=== PATIENT | male | born 1990 | race Caucasian/White ===

== ENCOUNTER 2024-09-27 14:54 | Emergency (ER) | payer BC, SELFPAY ==
[2024-09-27 14:54] VITALS: BMI 45.2
[2024-09-27 14:58] VITALS: BP 136/82
--- NOTE | 2024-09-27 16:00 | ED.GENMED ---
History of Present Illness
General
Chief Complaint: Back Pain
Time Seen by Provider: 09/27/24 15:35
History of Present Illness
History of Present Illness:
34-year-old male presents the emergency department for evaluation of gradually worsening low back pain for the past 24 hours. He notes it began after lifting several heavy objects around his house. He is having severe difficulty getting up from a
supine position, when upright he has pain radiating down both lateral thighs. No loss of bladder or bowel function, no lower extremity paresthesias at rest. Has taken ibuprofen and Tylenol without relief. No history of IV drug abuse or night
sweats
Review of Systems
Review of Systems
Allergies reviewed?: Yes
All Other Systems: ROS reviewed and negative except as documented in HPI and ROS
Phy Exam
Physical Exam
Physical Exam:
GEN: Well appearing, NAD, WDWN
HEENT: Oral mucosa moist, no scleral icterus
Cardiac: Regular rate
Lung: No respiratory distress, no tachypnea
MSK: No gross deformity or injuries. Unable to adequately assess L-spine due to patient's inability to tolerate upright positioning, any degree of motion of the lower extremities elicits increased pain, patellar reflexes 2+ bilaterally
Skin: Good color, no pallor or jaundice, no rashes
Neuro: AO x3, moves all extremities freely
Psych: Calm, cooperative
Course
Orders/Labs/Results
Orders:
Orders
09/27/24 15:56
Diazepam [Valium] 5 mg PO NOW STA
Ketorolac [Toradol] 30 mg IM NOW STA
09/27/24 17:38
Oxycodone [Roxicodone] 10 mg PO NOW STA
09/27/24 18:56
Dexamethasone Sod Phosphate [Decadron] 10 mg IM NOW STA
HYDROmorphone [Dilaudid] 0.5 mg IM NOW STA
Vital Signs
Initial and Last Documented VS:
Initial Vital Signs
Temp Pulse Resp BP Pulse Ox
98.2 F 73 15 136/82 96
09/27/24 14:58 09/27/24 14:58 09/27/24 14:58 09/27/24 14:58 09/27/24 14:58
Last Documented Vital Signs
Temp Pulse Resp BP Pulse Ox
98.2 F 73 15 136/82 96
09/27/24 14:58 09/27/24 14:58 09/27/24 14:58 09/27/24 14:58 09/27/24 14:58
MDM/Problems Addressed
MDM/Problems Addressed:
Patient's pain was quite challenging to control, ultimately he remains in significant pain but is able to ambulate with some degree of assistance. I did offer him admission for further pain control however at this time he is not interested in
admission due to the need to care for children and his spouse at home. Will start him on a steroid course and provide a prescription for opioids. At this time he has no red flag symptoms warranting urgent MRI concerning for cauda equina
*Critical Care Note
Total Time (30-74mins, 75-104mins- exclusive of procedures): Not Applicable
ED Attending Note
-
Portions of this chart may have been created with voice recognition software.� Occasional wrong word or��sound alike� substitutions may have occurred due to the inherent limitations of voice recognition software.
Discharge Plan
Departure
Patient Disposition: Home (Routine Discharge)
Date of Disposition: 09/27/24
Time of Disposition: 18:46
Patient with high blood pressure during this ER visit?: No
Discharge Problem:
Mechanical low back pain
Instructions: Low Back Pain (DC)
Prescriptions:
New
methylprednisolone [Medrol (Andrew)] 4 mg tablets,dose pack
See Rx Instructions .ROUTE .COMPLEX Qty: 21 0RF
Rx Instructions:
orally per package directions
methocarbamol 750 mg tablet
750 - 1,500 mg PO Q8H Qty: 20 0RF
oxycodone 5 mg tablet
5 mg PO Q8H PRN (Reason: Pain) Qty: 10 0RF
Referrals:
NONE,* [Family Provider] -
Activity Restrictions/Additional Instructions:
Do not take any ibuprofen while on the steroids
Follow up with your primary doctor in 1-2 days
Interventions
Interventions:
*Risk Screen - Suicide Last Done: 09/27/24 14:58
*General Assessment Last Done: 09/27/24 14:58
*Neglect/Abuse Screening Last Done: 09/27/24 14:58
*ED COVID-19 Vaccine History Last Done: 09/27/24 14:58
*Nursing Disposition Last Done: 09/27/24 19:22
ED-Musculoskeletal Assessment Last Done: 09/27/24 19:22
Discharge Date and Time
Discharge Date/Time: 09/27/24 19:22
Print Language: BENINESE
[2024-09-27] MEDS: TORADOL 30 MG IM (16:14)
[2024-09-27] MEDS: VALIUM 5 MG PO (16:14)
[2024-09-27] MEDS: ROXICODONE 10 MG PO (17:50)
[2024-09-27] MEDS: DILAUDID 0.5 MG IM (19:13)
[2024-09-27] MEDS: DECADRON 10 MG IM (19:17)
== END 2024-09-27 19:22 | disposition home or self-care (01) ==
LOC: EMR 14:54
PROVIDERS: EMERGENCY PHYSICIAN Emergency Medicine
DX: M54.50 Low back pain, unspecified (principal)
CPT/HCPCS: 99284; 96372 ×3

== ENCOUNTER 2024-10-09 09:36 | Emergency (ER) | payer BC, SELFPAY ==
[2024-10-09 09:38] VITALS: BP 141/94
--- NOTE | 2024-10-09 10:09 | ED.GENMED ---
History of Present Illness
General
Chief Complaint: Back Pain
Source: patient
Exam Limitations: none
Time Seen by Provider: 10/09/24 09:52
History of Present Illness
History of Present Illness:
34-year-old male presents for reevaluation of lower back pain. He was here about 2 weeks ago for the same. He was doing better while taking the steroid pack however he ran out of this 6 days ago hide again. He has extreme since. No significant
radiation of pain down the legs. He denies any bowel or bladder dysfunction. This started after moving some furniture around at home. No new injury. He denies any numbness anywhere. No fevers. He attempted to call a back and spine office and
has yet to receive an appointment. No other medical problems. No other complaints at this time
Phy Exam
Physical Exam
Physical Exam:
General: Well-appearing but uncomfortable male no acute respiratory distress
HEENT: Normocephalic atraumatic
MSK: Paraspinous spasm noted over the right lumbosacral junction. No significant midline tenderness.
Neurologic exam patient is able to stand. He has good sensation to the lower extremities. Good strength to the lower extremities.
Skin is warm no rash
Course
Orders/Labs/Results
Orders:
Orders
10/09/24 10:07
Dexamethasone Sod Phosphate [Decadron] 10 mg IM NOW STA
Diazepam [Valium] 5 mg PO NOW STA
HYDROmorphone [Dilaudid] 1 mg IM NOW STA
Ketorolac [Toradol] 30 mg IM NOW STA
10/09/24 10:56
Ondansetron Orally Disint [Zofran Odt (Orally Disintegrating)] 4 mg PO NOW STA
10/09/24 11:00
Ondansetron Orally Disint [Zofran Odt (Orally Disintegrating)] 4 mg .ROUTE .[facility]
Vital Signs
Initial and Last Documented VS:
Initial Vital Signs
Temp Pulse Resp BP Pulse Ox
98.3 F 94 18 141/94 94
10/09/24 09:38 10/09/24 09:38 10/09/24 09:38 10/09/24 09:38 10/09/24 09:38
Last Documented Vital Signs
Temp Pulse Resp BP Pulse Ox
98.3 F 94 18 141/94 94
10/09/24 09:38 10/09/24 09:38 10/09/24 09:38 10/09/24 09:38 10/09/24 09:38
MDM/Problems Addressed
Differential Diagnosis Includes:
Recurrent lower back pain. No red flags to suggest cauda equina. No fever to suggest infectious process. Will attempt to treat symptoms with medication here. He declined an IV. He will receive IM injections of medicine.
*Critical Care Note
Total Time (30-74mins, 75-104mins- exclusive of procedures): Not Applicable
Update Note
Update Note:
Patient feeling slightly improved after medicine here. Will represcribe a steroid taper more muscle relaxers and pain medicine. He plans on following up with back pain specialist.
ED Attending Note
-
Portions of this chart may have been created with voice recognition software.� Occasional wrong word or��sound alike� substitutions may have occurred due to the inherent limitations of voice recognition software.
Discharge Plan
Departure
Patient Disposition: Home (Routine Discharge)
Date of Disposition: 10/09/24
Time of Disposition: 12:31
Patient with high blood pressure during this ER visit?: No
Discharge Problem:
Back pain
Instructions: Low Back Pain (DC)
Prescriptions:
New
prednisone 10 mg Tablet
See Rx Instructions .ROUTE .COMPLEX Qty: 45 0RF
Rx Instructions:
Take By Mouth:
50 mg daily x3 days, 40 mg daily x3 days,
30 mg daily x3 days, 20 mg daily x3 days,
10 mg daily x3 days
cyclobenzaprine 10 mg tablet
10 mg PO TID PRN (Reason: spasm) Qty: 10 0RF
oxycodone 5 mg tablet
5 mg PO Q8H PRN (Reason: Pain) Qty: 10 0RF
No Action
methylprednisolone [Medrol (Andrew)] 4 mg tablets,dose pack
See Rx Instructions .ROUTE .COMPLEX Qty: 21 0RF
Rx Instructions:
orally per package directions
methocarbamol 750 mg tablet
750 - 1,500 mg PO Q8H Qty: 20 0RF
oxycodone 5 mg tablet
5 mg PO Q8H PRN (Reason: Pain) Qty: 10 0RF
Referrals:
NONE,* [Family Provider] -
Activity Restrictions/Additional Instructions:
Continue with medicine as directed. Continue to follow-up with back pain specialist.
Interventions
Interventions:
*Risk Screen - Suicide Last Done: 10/09/24 09:38
*General Assessment Last Done: 10/09/24 09:38
*Neglect/Abuse Screening Last Done: 10/09/24 09:38
ED-Musculoskeletal Assessment Last Done: 10/09/24 11:01
Discharge Date and Time
Print Language: AZERI
[2024-10-09] MEDS: DECADRON 10 MG IM (10:39)
[2024-10-09] MEDS: VALIUM 5 MG PO (10:39)
[2024-10-09] MEDS: TORADOL 30 MG IM (10:40)
[2024-10-09] MEDS: DILAUDID 1 MG IM (10:40)
[2024-10-09] MEDS: ZOFRAN ODT (ORALLY DISINTEGRATING) 4 MG PO (11:00)
[2024-10-09 13:08] VITALS: BP 136/74
== END 2024-10-09 13:09 | disposition home or self-care (01) ==
LOC: EMR 09:36
PROVIDERS: EMERGENCY PHYSICIAN Emergency Medicine
DX: M54.50 Low back pain, unspecified (principal)
CPT/HCPCS: 96372; 99284